=== PATIENT | female | born 1980 | race Two or more races ===

== ENCOUNTER 2021-03-04 05:10 | Day surgery (SDC) | payer OTHER ==
[2021-03-04] MEDS ORDERED: NAPR500T14 PO (09:45)
[2021-03-04] MEDS ORDERED: MORGIDOX100 MG PO (10:51)
== END 2021-03-04 13:50 | disposition home or self-care (01) ==
LOC: CIR.AMB 05:10
PROVIDERS: ATTEND Obstetrics & Gynecology
DX: D25.0 Submucous leiomyoma of uterus (principal); N84.0 Polyp of corpus uteri; Z20.822 Contact with and (suspected) exposure to COVID-19

== ENCOUNTER 2025-03-22 14:28 | Emergency (ER) | payer OTHER ==
[~2025-03-22] VITALS: Ht 149.9 cm; Wt 56.7 kg
[~2025-03-22 14:28] MED LIST: MORGIDOX100 MG PO; NAPR500T14 PO
[2025-03-22] MEDS ORDERED: CETIRIZINE HCL 5 MG/5 ML ML PO ONE (16:30)
[2025-03-22] MEDS ORDERED: FAMOTIDINE/PF 20 MG/2 ML VIAL IV ONE (16:30)
[2025-03-22] MEDS ORDERED: METHYLPREDNISOLONE SOD SUCC 125 MG VIAL IM ONE (16:30)
[2025-03-22] MEDS ORDERED: MEDROLPACK PO (17:00)
[2025-03-22] MEDS ORDERED: BENADRYL ALLERG50 MG PO (17:00)
[2025-03-22] MEDS ORDERED: PEPCID AC20 MG PO (17:00)
== END 2025-03-22 19:18 | disposition home or self-care (01) ==
LOC: ER 14:28
DX: T78.40XA Allergy, unspecified, initial encounter (principal); Z91.030 Bee allergy status